=== PATIENT | female | born 1950 | race Caucasian/White ===

== ENCOUNTER 2022-12-06 12:59 | Outpatient (CLI) | payer MEDICARE, OTHER | END 2022-12-06 13:00 | disposition home or self-care (01) | LOC: CSHRAD 12:59 | PROVIDERS: ATTEND Physician Assistant | DX: M25.561 Pain in right knee (principal); M54.16 Radiculopathy, lumbar region; M17.11 Unilateral primary osteoarthritis, right knee; Q79.9 Congenital malformation of musculoskeletal system, unspecified; M43.17 Spondylolisthesis, lumbosacral region; M47.816 Spondylosis without myelopathy or radiculopathy, lumbar region | CPT/HCPCS: 72100 ==